=== PATIENT | female | born 1980 | race African-American/Black ===

== ENCOUNTER 2017-01-15 08:09 | Emergency (ER) | payer MEDICARE, MEDICAID | END 2017-01-15 09:30 | disposition home or self-care (01) | LOC: ERS 08:09 | DX: K02.9 Dental caries, unspecified (principal); F31.9 Bipolar disorder, unspecified; F20.9 Schizophrenia, unspecified | CPT/HCPCS: 99282 ==

== ENCOUNTER 2017-04-10 09:17 | Emergency (ER) | payer MEDICARE, MEDICAID | END 2017-04-10 09:57 | disposition home or self-care (01) | LOC: ERS 09:17 | DX: J11.1 Influenza due to unidentified influenza virus with other respiratory manifestations (principal); F31.9 Bipolar disorder, unspecified; F20.9 Schizophrenia, unspecified | CPT/HCPCS: 99282 ==

== ENCOUNTER 2018-07-13 18:02 | Emergency (ER) | payer MEDICARE, MEDICAID ==
--- NOTE | 2018-07-13 19:06 | RAD ---
FPortable chest: HISTORY: Cough COMPARISON: None FINDINGS:Lung gilmore are clear. Heart and mediastinum appear unremarkable. Vascularity is normal. Visualized osseous structures unremarkable. Postop sternotomy change. IMPRESSION:Unremarkable portable chest
== END 2018-07-13 20:05 | disposition home or self-care (01) ==
LOC: ERS 18:02
DX: J06.9 Acute upper respiratory infection, unspecified (principal); E03.9 Hypothyroidism, unspecified; F31.9 Bipolar disorder, unspecified; F20.9 Schizophrenia, unspecified
CPT/HCPCS: 71045; 87804